=== PATIENT | female | born 1930 | race American Indian/Alaskan Native ===

== ENCOUNTER 2016-05-26 10:14 | Day surgery (SDC) | payer OTHER ==
[2016-05-26] MEDS ORDERED: NACL 0.9% 1000 ML 1,000 ML IV SCH (13:00)
== END 2016-05-26 10:15 | disposition home or self-care (01) ==
LOC: GIO 10:14
PROVIDERS: ATTEND Internal Medicine Gastroenterology
DX: D64.9 Anemia, unspecified (principal); Z53.8 Procedure and treatment not carried out for other reasons; R63.4 Abnormal weight loss; Z86.010 Personal history of colon polyps

== ENCOUNTER 2016-07-10 13:31 | Day surgery (SDC) | payer OTHER ==
--- NOTE | 2016-07-10 14:52 | Anesthesia Day of Surgery ---
Anesthesia Day of Surgery - Day of Surgery Patient Examined: Yes Patient H&P Reviewed: Yes Patient is NPO: Yes
--- NOTE | 2016-07-10 14:54 | Anesthesia Consultation ---
Anesthesia Consult and Med Hx Date of service: 07/10/16 - Airway Anesthetic Teeth Evaluation: Partials (upper permanent) ROM Head & Neck: Adequate Mental/Hyoid Distance: Adequate Mallampati Class: Class II Intubation Access Assessment: Probably Good - Pulmonary Exam CTA: Yes - Cardiac Exam Cardiac Exam: RRR - Pre-Operative Health Status ASA Pre-Surgery Classification: ASA2 Proposed Anesthetic Plan: MAC - Pulmonary Hx Smoking: No - Cardiovascular System Hx Hypertension: Yes (high cholesterol) Hx Heart Attack/AMI: No - Central Nervous System Hx Neuromuscular Disorder: Yes (arthritis of the knees) Hx Seizures: No CVA: No - Gastrointestinal Hx Gastroesophageal Reflux Disease: Yes - Endocrine Hx Renal Disease: No Hx Liver Disease: No Hx Non-Insulin Dependent Diabetes: No - Additional Comments Anesthesia Medical History Comments: NAC
[2016-07-10] MEDS ORDERED: DIPRIVAN 10 MG/ML IV ONE ×3 (14:58→16:18)
[2016-07-10] MEDS ORDERED: NACL 0.9% 1000 ML 1,000 ML IV SCH (15:00)
--- NOTE | 2016-07-10 16:36 | Operative Report ---
Operative Report Operative Report: Date of procedure: 07/10/2016 Procedure: Colonoscopy with multiple hot biopsy polypectomies, polyp ablations, cold biopsy of cecal polyp.. Attending physician: Elvin Smith MD Director It Project: Elvin Smith MD Indication: Patient is a 86-year-old female who presents for screening colonoscopy. A colonoscopy service to evaluate patient for colorectal cancer screening.. Consent: Informed consent was obtained after advising the patient and family regarding nature of this procedure, its indications, potential benefits as well as possible complications including but not limited to bleeding perforation and adverse reaction to medication, infection as well as other cardiopulmonary complications. An informed written and verbal consent was then obtained after due opportunity was provided for questions and answers. Monitoring: Patient was monitored continuously with pulse oximetry and electrocardiographic recordings as well as blood pressure recordings. Vital signs remained stable throughout this procedure with no untoward events. Preoperative assessment: Patient was assessed immediately prior to this procedure for capacity to tolerate monitored anesthesia care and moderate sedation as well as general anesthesia. Patient's ASA classification is 2, Mallampati class is 2, Hyomental distance is 3. Instrument: TextureMedian video colonoscope Medications: Propofol given intravenously in divided doses. For details please refer to anesthesia records. Description of procedure: Patient was placed in the left lateral decubitus position after achieving sedation, a digital rectal examination was performed following which the colonoscope was introduced into the anal verge and advanced to the cecum which was identified by the ileocecal valve, the appendiceal orifice, as well as by the cecal strap and direct transillumination. The colonoscope was subsequently withdrawn with careful inspection of all mucosal surfaces. Patient tolerated this procedure well and was subsequently taken to the recovery room. The following findings were noted. Findings: The colon was very tortuous. Procedure was technically difficult and prolonged. Beginning in the cecum, there was a polypoid lesion that measured approximately 2 cm maybe about 2.5 cm. It was not entirely clear if this was an extension of the ileocecal valve but it was an adjoining the ileocecal valve and projecting to the cecum. It had a broad base. It had the endoscopic appearance of a possible polyp. Several biopsies of this were obtained. This lesion bled very easily. In the ascending colon, there were 2 polyps. One was a diminutive sessile 4-5 mm polyp which was removed easily by hot biopsy polypectomy. The other polyp appeared to be on a broad base but was on the fold which was not easily discernible. Biopsies of this lesion were then obtained. The hepatic flexure, there was another adjoining polyp which was removed by hot biopsy polypectomy and retrieved. There were 2 diminutive polyps seen in the sigmoid and descending colon that were ablated. There were a few diverticula noted. The colon was quite tortuous in all segments. In all procedure took more than 1 hour. The procedure therefore was technically difficult. There were no other mucosal abnormalities seen otherwise. On the retroflex view at the anal verge, patient had internal hemorrhoids. Impression: Cecal/ileocecal valve polypoid lesion status post cold biopsies. Ascending colon polyp status post hot biopsy polypectomy. Hepatic flexure polyp status post hot biopsy polypectomy. Descending colon polyp and sigmoid colon polyp status post ablation. Diverticular disease of the colon. Internal hemorrhoids. Plan: Follow pathology report. If the lesion in the cecum/ileocecal valve is an adenoma, patient may require limited resection of this area including possible extension to the ascending colon. If however this lesion is more nondescript/ non diagnostic, and if she does not show any evidence of adenoma, a repeat colonoscopy should be done within 6 months to assess patient again given the endoscopic findings. In the interim, patient further encouraged increased dietary fiber intake. With a High-fiber diet. Repeat colonoscopy should be done in 6 months if the cecal lesion is nondiagnostic. If however the cecal lesion shows adenoma patient will require resection of this area. For now will encourage high-fiber diet.
[2016-07-10 17:08] VITALS: BP 175/75
--- NOTE | 2016-07-10 18:06 | Post Anesthesia Evaluation ---
- Post Anesthesia Evaluation Patient Participated: Yes Airway Patent: Yes Stable Respiratory Function: Yes Nausea/Vomiting: No Temp > 96.8F: Yes Pain Manageable: Yes Adequeate Hydration: Yes Anesthesia Complications: No
== END 2016-07-10 13:32 | disposition home or self-care (01) ==
LOC: GIO 13:31
PROVIDERS: ATTEND Internal Medicine Gastroenterology
DX: Z12.11 Encounter for screening for malignant neoplasm of colon (principal); D12.0 Benign neoplasm of cecum; D12.3 Benign neoplasm of transverse colon; D12.2 Benign neoplasm of ascending colon; K63.89 Other specified diseases of intestine; K57.30 Diverticulosis of large intestine without perforation or abscess without bleeding; K64.8 Other hemorrhoids; I10 Essential (primary) hypertension; M17.9 Osteoarthritis of knee, unspecified; K21.9 Gastro-esophageal reflux disease without esophagitis; Z82.49 Family history of ischemic heart disease and other diseases of the circulatory system
CPT/HCPCS: 45380; 45384; 45388; 88305; J2704; J7030

== ENCOUNTER 2016-07-30 15:17 | Emergency (ER) | payer OTHER ==
[2016-07-30 15:36] VITALS: BP 156/61
[2016-07-30] MEDS ORDERED: NACL 0.9% 1000 ML 1,000 ML IV ONE (15:36)
[2016-07-30 16:13] LABS: Basophils % (Auto) 0.7 % (0.0-1.8); Hematocrit 34.1 % (30.3-42.9); Hemoglobin 11.2 gm/dl (10.1-14.3); Mean Corpuscular HGB Conc 33 % (30-34); Mean Corpuscular Hemoglobin 30 pg (28-32); Mean Corpuscular Volume 91 fl (79-97); Platelet Count 360 K/mm3 (140-440); Red Blood Count 3.76 M/mm3 (3.65-5.03); Red Cell Distribution Width 14.5 % (13.2-15.2); White Blood Count 11.3 K/mm3 (4.5-11.0)
[2016-07-30 16:23] LABS: INR 1.08 (0.87-1.13); Partial Thromboplastin Time 31.9 Sec. (24.2-36.6)
[2016-07-30 16:41] LABS: Alanine Aminotransferase 9 units/L (7-56); Albumin 4.2 g/dL (3.9-5); Albumin/Globulin Ratio 1.7 %; Alkaline Phosphatase 45 units/L (35-129); Anion Gap 25 mmol/L; BUN/Creatinine Ratio 16.66; Bilirubin,Total < 0.20 mg/dL (0.1-1.2); Blood Urea Nitrogen 15 mg/dL (7-17); Calcium 9.4 mg/dL (8.4-10.2); Carbon Dioxide 15 mmol/L (22-30); Chloride 105.2 mmol/L (98-107); Glucose 96 mg/dL (65-100); Lipase 21 units/L (13-60); Potassium 3.7 mmol/L (3.6-5.0); Sodium 141 mmol/L (137-145); Total Protein 6.7 g/dL (6.3-8.2)
--- NOTE | 2016-08-05 10:31 | ED Elopement Review ---
ED Pt Elopement review - Results review Lab results: Laboratory Tests 07/30/16 07/30/16 07/30/16 15:36 16:01 16:01 WBC 11.3 H RBC 3.76 Hgb 11.2 Hct 34.1 MCV 91 MCH 30 MCHC 33 RDW 14.5 Plt Count 360 Lymph % (Auto) 7.8 L Davison % (Auto) 7.1 Eos % (Auto) 1.0 Baso % (Auto) 0.7 Lymph # 0.9 L Davison # 0.8 Eos # 0.1 Baso # 0.1 Seg Neutrophils % 83.4 H Seg Neutrophils # 9.4 H PT 13.9 INR 1.08 APTT 31.9 Sodium 141 Potassium 3.7 Chloride 105.2 Carbon Dioxide 15 L Anion Gap 25 BUN 15 Creatinine 0.9 Estimated GFR > 60 BUN/Creatinine Ratio 16.66 Glucose 96 Calcium 9.4 Total Bilirubin < 0.20 AST 11 ALT 9 Alkaline Phosphatase 45 Total Protein 6.7 Albumin 4.2 Albumin/Globulin Ratio 1.7 Lipase 21 Blood Type Antibody Screen JAIRO Antibody Screen 07/30/16 18:30 WBC RBC Hgb Hct MCV MCH MCHC RDW Plt Count Lymph % (Auto) Davison % (Auto) Eos % (Auto) Baso % (Auto) Lymph # Davison # Eos # Baso # Seg Neutrophils % Seg Neutrophils # PT INR APTT Sodium Potassium Chloride Carbon Dioxide Anion Gap BUN Creatinine Estimated GFR BUN/Creatinine Ratio Glucose Calcium Total Bilirubin AST ALT Alkaline Phosphatase Total Protein Albumin Albumin/Globulin Ratio Lipase Blood Type O POSITIVE Antibody Screen TNR JAIRO Antibody Screen Negative - Call Back decision Pt Call Back Decision: Call pt to return to ED DIANA (patient with anion gap acidosis should come back for repeat evaluation)
== END 2016-07-30 20:21 | disposition left against medical advice (07) ==
LOC: ED 15:17
DX: R31.9 Hematuria, unspecified (principal); R10.9 Unspecified abdominal pain; E78.00 Pure hypercholesterolemia, unspecified; Z53.21 Procedure and treatment not carried out due to patient leaving prior to being seen by health care provider
CPT/HCPCS: 36415; 80053; 83690; 85025; 85610; 85730; 86850; 86900; 86901; 93005; 93010